=== PATIENT | male | born 1965 | race Caucasian/White ===

== ENCOUNTER → 2022-02-28 | Day surgery (SDC) | payer OTHER | END | disposition home or self-care (01) | LOC: JRADIR 10:00 | PROVIDERS: ATTEND Internal Medicine Endocrinology, Diabetes & Metabolism | PROC: 0GBG3ZX Excision of Left Thyroid Gland Lobe, Percutaneous Approach, Diagnostic (ICD-10-PCS; principal; 2022-02-28) | PROC: BG44ZZZ Ultrasonography of Thyroid Gland (ICD-10-PCS; 2022-02-28) | DX: E04.1 Nontoxic single thyroid nodule (principal) | CPT/HCPCS: 10005; 76942; 88173; 88305-TC ==